=== PATIENT | male | born 1970 | race Caucasian/White ===

== ENCOUNTER 2019-11-07 02:21 | Emergency (ER) | payer BC ==
[2019-11-07 02:29] VITALS: BP 128/72; PULSE 89; RESP 18; TEMP 98.5
--- NOTE | 2019-11-07 02:49 | ED ---
Lower Extremity Injury HPI - General Chief Complaint: Extremity Injury, Lower Stated Complaint: RT ankle injury Time Seen by Provider: 11/07/19 02:41 Source: patient, RN notes reviewed, old records reviewed Mode of arrival: ambulatory Limitations: no limitations - History of Present Illness Initial Comments: This is a 49-year-old male to the ER for evaluation patient comes in for right ankle pain. Patient had a ankle sprain type injury while dancing tonight. Admits to mild intoxication no other injury. Patient is no travel history no sick contacts. No other complaints MD Complaint: ankle injury (Right) -: minutes(s) Injury: Ankle: Right Type of Injury: inversion Place: home Severity: moderate Severity scale (1-10): 5 Context: fall Associated Symptoms: snap/pop sensation, swelling - Related Data Allergies Allergy/AdvReac Type Severity Reaction Status Date / Time Penicillins Allergy Anaphylaxis Verified 11/07/19 02:30 Review of Systems ROS Statement: Those systems with pertinent positive or pertinent negative responses have been documented in the HPI. ROS Other: All systems not noted in ROS Statement are negative. Past Medical History Past Medical History: No Reported History History of Any Multi-Drug Resistant Organisms: None Reported Past Surgical History: Appendectomy Past Psychological History: No Psychological Hx Reported Smoking Status: Current every day smoker Past Alcohol Use History: Occasional Past Drug Use History: None Reported General Exam General appearance: alert, in no apparent distress Head exam: Present: atraumatic, normocephalic, normal inspection Eye exam: Present: normal appearance, PERRL, EOMI. Absent: scleral icterus, conjunctival injection, periorbital swelling ENT exam: Present: normal exam, mucous membranes moist Neck exam: Present: normal inspection. Absent: tenderness, meningismus, lymphadenopathy Respiratory exam: Present: normal lung sounds bilaterally. Absent: respiratory distress, wheezes, rales, rhonchi, stridor Cardiovascular Exam: Present: regular rate, normal rhythm, normal heart sounds. Absent: systolic murmur, diastolic murmur, rubs, gallop, clicks GI/Abdominal exam: Present: soft, normal bowel sounds. Absent: distended, tende rness, guarding, rebound, rigid Extremities exam: Present: normal inspection, full ROM, normal capillary refill, other (Significant right ankle tenderness and swelling). Absent: tenderness, pedal edema, joint swelling, calf tenderness Back exam: Present: normal inspection Neurological exam: Present: alert, oriented X3, CN II-XII intact Psychiatric exam: Present: normal affect, normal mood Skin exam: Present: warm, dry, intact, normal color. Absent: rash Course Vital Signs 11/07/19 02:25 Temperature 98.5 F Pulse Rate 89 Respiratory 18 Rate Blood Pressure 128/72 O2 Sat by Pulse 100 Oximetry - Reevaluation(s) Reevaluation #1: 11/07/19 03:20 Medical record is reviewed Reevaluation #2: 11/07/19 03:20 Patient informed of results and questions answered Procedures - Orthopedic Splinting/Casting Injury #1 Side: right Lower Extremity Immobilizer: posterior splint Medical Decision Making - Medical Decision Making 49 male DF for evaluation with right ankle pain. Patient is presenting with right ankle swelling, patient does have right fibular fracture fracture splinted and patient can be discharged home - Radiology Data Radiology results: report reviewed (X-ray right ankle shows fibular fracture), image reviewed Disposition Clinical Impression: Closed right ankle fracture, Right fibular fracture Disposition: HOME SELF-CARE Condition: Good Instructions (If sedation given, give patient instructions): Ankle Fracture (ED) Is patient prescribed a controlled substance at d/c from ED?: No Referrals: Hal Tinoco MD [Primary Care Provider] - 1-2 days
--- NOTE | 2019-11-07 03:02 | XR ---
EXAMINATION TYPE: XR ankle complete LT DATE OF EXAM: 11/07/2019 COMPARISON: NONE HISTORY: Ankle pain TECHNIQUE: 3 views FINDINGS: There is nondisplaced oblique fracture distal fibula. There is soft tissue swelling around the ankle. Ankle mortise is widened. Talus is intact. IMPRESSION: Acute nondisplaced fracture of the distal fibula.
[2019-11-07] MEDS ORDERED: traMADol 50 MG STARTER PACK 3 TAB BTL PO STA (03:19)
[2019-11-07] MEDS ORDERED: traMADol 50 MG TAB PO STA (03:19)
== END 2019-11-07 03:48 | disposition home or self-care (01) ==
LOC: EC 02:21
DX: S82.434A Nondisplaced oblique fracture of shaft of right fibula, initial encounter for closed fracture (principal); F17.200 Nicotine dependence, unspecified, uncomplicated; Z88.0 Allergy status to penicillin; W18.30XA Fall on same level, unspecified, initial encounter; Y93.41 Activity, dancing
CPT/HCPCS: 29515; 99284

== ENCOUNTER 2019-11-26 08:08 | Day surgery (SDC) | payer BC ==
[2019-11-23 15:40] VITALS: BMI 31.9
--- NOTE | 2019-11-26 07:31 | P.GSHP ---
History of Present Illness H&P Date: 11/26/19 CHIEF COMPLAINT: Colon screen HISTORY OF PRESENT ILLNESS: The patient is a 49-year-old male who presents for colon screen. Lower endoscopy was offered for further evaluation and management. PAST MEDICAL HISTORY: Please see list. PAST SURGICAL HISTORY: Please see list. MEDICATIONS: Please see list. ALLERGIES: Please see list. SOCIAL HISTORY: No illicit drug use FAMILY HISTORY: No reports of Crohn disease or ulcerative colitis. REVIEW OF ORGAN SYSTEMS: CONSTITUTIONAL: No reports of fevers or chills. PHYSICAL EXAM: VITAL SIGNS: Stable GENERAL: Well-developed pleasant in no acute distress. HEENT: No scleral icterus. Extraocular movements grossly intact. Moist buccal mucosa. NECK: Supple without lymphadenopathy. CHEST: Unlabored respirations. Equal bilateral excursions. CARDIOVASCULAR: Regular rate and rhythm. Distal 2+ pulses. ABDOMEN: Soft, nontender, nondistended. MUSCULOSKELETAL: No clubbing, cyanosis, or edema. ASSESSMENT: 1. Colon screen. PLAN: 1. Recommend proceeding with a lower endoscopy Past Medical History Past Medical History: Asthma Additional Past Medical History / Comment(s): rt ankle injury wearing boot. PSA blood work elevated to f/u with dr Dumas. Family hx BRCA gene. asthma as child. hypoglycemic History of Any Multi-Drug Resistant Organisms: None Reported Past Surgical History: Appendectomy Past Anesthesia/Blood Transfusion Reactions: No Reported Reaction Smoking Status: Current every day smoker - Past Family History Sister(s) Family Medical History: Cancer Additional Family Medical History / Comment(s): BRCA positive. ovarian cancer. breast removed Father Additional Family Medical History / Comment(s): BRCA positive gene Medications and Allergies Home Medications Medication Instructions Recorded Confirmed Type [place] (Unk Dose) 1 tab PO Q4H PRN 11/23/19 11/23/19 History Allergies Allergy/AdvReac Type Severity Reaction Status Date / Time Penicillins Allergy Anaphylaxis Verified 11/23/19 15:32
[~2019-11-26 08:08] MED LIST: LACTATED RINGERS 1,000 ML IV SCH; LIDOCAINE 1% (10MG/ML) FOR IV START INTRADERMA PRN
[2019-11-26 08:38] VITALS: TEMP 97.5
[2019-11-26] MEDS ORDERED: PROPOFOL 10 MG/ML 20 ML VIAL IV ONE (09:25)
[2019-11-26 09:54] VITALS: RESP 16
--- NOTE | 2019-11-26 09:59 | P.PCN ---
Date of Procedure: 11/26/19 Description of Procedure: PREOPERATIVE DIAGNOSIS: Colonoscopy screening, first POSTOPERATIVE DIAGNOSIS: Sigmoid colon polyp Internal hemorrhoids External hemorrhoids OPERATION: Colonoscopy to the ileocecal valve and appendiceal orifice, cecum Colonoscopy with cold forceps biopsies SURGEON: Eliza Lea MD. ANESTHESIA: MAC. INDICATIONS: The patient is an 49-year-old male who presents for his first classic screening. Benefits and risks were described and informed consent was obtained. DESCRIPTION OF PROCEDURE: The patient had undergone Suprep. He had been brought into the operating room and laid in the left lateral decubitus position. After adequate intravenous sedation, the rectum was examined with 2% lidocaine jelly. The prostate was unremarkable. External hemorrhoids were encountered. The rectal tone was within normal limits. No lesions were palpated in the rectal vault. An Olympus colonoscope was advanced until the cecum, ileocecal valve and appendiceal orifice were clearly viewed. The prep was good. No sigmoid diverticulosis was encountered. Multiple colonic polyps were found and snare polypectomy. No evidence of focal colitis was found. Retroflexion of the scope demonstrated grade 3 internal hemorrhoids without active bleeding or inflammation. The colon was desufflated. The patient had tolerated the procedure well. Withdrawal time was over 6 minutes. FINDINGS: [place]ick preparation quality scale 2 (1-5) Internal hemorrhoids, grade 3 External hemorrhoids, grade 3 No arteriovenous malformations. No sigmoid diverticulosis Removal of 1 polypn: - Cold forceps biopsy at 20 cm from the anal verge, 4 mm polyp, sigmoid colon No focal colitis. RECOMMENDATIONS: Repeat colonoscopy 2024 Plan - Discharge Summary Discharge Rx Participant: No New Discharge Prescriptions: Continue [place] (Unk Dose) 1 tab PO Q4H PRN PRN Reason: Pain Discharge Medication List [place] (Unk Dose) 1 tab PO Q4H PRN 11/23/19 [History] Patient Instructions/Handouts: *Surgery [facility] - (Anesthesia) Endoscopy Discharge Instructions, Hemorrhoids (DC), Colorectal Polyps (DC), Colonoscopy (DC) Activity/Diet/Wound Care/Special Instructions: Repeat colonoscopy years2024 Discharge Disposition: HOME SELF-CARE
[2019-11-26 10:11] VITALS: BP 134/78; PULSE 70
--- NOTE | 2019-11-29 10:05 | CDI ---
Outpatient Documentation Clarification Form Date: 11/29/19 CDS/Hydraulic Governor Assembler Name: Diana Smith Phone: If any questions, call Monique Leigh Machine Steak Tenderizer at [phone] Patient Name: Delfino Bourne Admit Date: 11/26/19 Discharge Date: 11/26/19 ATTENTION: The [facility] Coding Staff appreciate your assistance in clarifying documentation. Please respond to the clarification below the line at the bottom and electronically sign. The [facility] Coding staff will review the response and follow-up if needed. Please note: Queries are made part of the Legal Health Record. If you have any questions, please contact the Machine Steak Tenderizer. Dear Dr. Lea, Please provide clarification for the method of the biopsies performed. On the procedure note under Operation and also under Findings cold forceps biopsy is documented. in the body of the procedure note, snare polypectomy is documented. Please clarify. Thank you for your kind consideration. Please see amended report. Removed with cold forceps. KM 11/30/19 @ 0608 MTDLennox
== END 2019-11-26 10:40 | disposition home or self-care (01) ==
LOC: ORWHC2ENDO 08:08
PROVIDERS: ATTEND Surgery Plastic and Reconstructive Surgery
DX: Z12.11 Encounter for screening for malignant neoplasm of colon (principal); K63.5 Polyp of colon; K64.2 Third degree hemorrhoids; J45.909 Unspecified asthma, uncomplicated; R97.20 Elevated prostate specific antigen [PSA]; E16.2 Hypoglycemia, unspecified; Z98.890 Other specified postprocedural states; Z15.01 Genetic susceptibility to malignant neoplasm of breast; Z85.89 Personal history of malignant neoplasm of other organs and systems; Z84.81 Family history of carrier of genetic disease; Z80.3 Family history of malignant neoplasm of breast; Z80.41 Family history of malignant neoplasm of ovary; Z88.0 Allergy status to penicillin; F17.210 Nicotine dependence, cigarettes, uncomplicated
CPT/HCPCS: 88305; 45380; J2704

== ENCOUNTER → 2020-05-16 | Outpatient (CLI) | payer BC ==
--- NOTE | 2020-05-16 08:38 | CT ---
EXAMINATION TYPE: CT ankle RT wo con DATE OF EXAM: 05/16/2020 COMPARISON: Plain film x-rays 11/07/2019 HISTORY: Fx in October 2019, not healing correctly CT DLP: 183.[address] of the right ankle with reconstruction imaging. TECHNIQUE: Unenhanced CT of the right ankle was performed with bone and soft tissue window settings s ubmitted in the axial coronal and sagittal planes. At a separate workstation 3-D TR imaging was obta ined. FINDINGS: Previously noted oblique distal fibular fracture is redemonstrated with only minimal medial callus fo rmation seen. Displacement of 3 mm noted. There is a well-corticated ossific density adjacent to the medial malleolar tip which is suspicious for an avulsion fracture of uncertain age. There is also per iosteal reaction involving the posterior malleolar region which may reflect healed fracture small avu lsion. There is bony osteopenia noted from disuse. Ankle mortise is intact. No acute fractures. IMPRESSION: 1. 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
== END | disposition home or self-care (01) ==
LOC: RADCTMAIN 06:55
PROVIDERS: ATTEND Podiatrist
DX: S82.61XK Displaced fracture of lateral malleolus of right fibula, subsequent encounter for closed fracture with nonunion (principal); M25.771 Osteophyte, right ankle

== ENCOUNTER 2020-07-15 05:41 | Day surgery (SDC) | payer BC ==
[2020-07-13 12:02] VITALS: BMI 33.4
[~2020-07-15 05:41] MED LIST changes: -LACTATED RINGERS 1,000 ML IV SCH; -LIDOCAINE 1% (10MG/ML) FOR IV START INTRADERMA PRN; +VANCOMYCIN 1,500 MG in SODIUM CHLORIDE 0.9% 250 ML IVPB PRN
[2020-07-15] MEDS ORDERED: ONDANSETRON 4 MG/2 ML VIAL IVP ONE (05:48)
[2020-07-15] MEDS ORDERED: LIDOCAINE 1% (10MG/ML) FOR IV START INTRADERMA PRN (05:48)
[2020-07-15] MEDS ORDERED: DEXAMETHASONE SOD PHOSPHATE 4 MG/ML 1 ML VIAL IV ONE (05:48)
[2020-07-15] MEDS ORDERED: MIDAZOLAM 2 MG/2 ML VIAL IV PRN (05:48)
[2020-07-15] MEDS: LACTATED RINGERS 1,000 ML IV SCH ×2 (06:15→06:40)
[2020-07-15] MEDS ORDERED: HYDROmorphone 0.5 MG/0.5 ML SYRINGE IVP PRN (07:00)
[2020-07-15] MEDS ORDERED: LIDOCAINE 1% INJ 10MG/ML (20 ML MDV) ONE ×3 (07:03→07:41)
[2020-07-15] MEDS ORDERED: ROPIVACAINE 5 MG/ML 30 ML VIAL ONE (07:41)
[2020-07-15] MEDS ORDERED: MIDAZOLAM 2 MG/2 ML VIAL ONE (07:41)
[2020-07-15] MEDS ORDERED: fentaNYL (PF) 50 MCG/ML 2 ML AMP ONE (07:41)
[2020-07-15] MEDS ORDERED: PROPOFOL 10 MG/ML 20 ML VIAL IV ONE (07:41)
[2020-07-15 09:13] VITALS: TEMP 97
--- NOTE | 2020-07-15 09:22 | P.OP ---
Date of Procedure: 07/15/20 Preoperative Diagnosis: Nonunion right lateral malleolar fracture Postoperative Diagnosis: Same Procedure(s) Performed: Repair of nonunion with internal fixation right lateral malleolus Implants: 1 Cameron 4-hole lateral malleolar plate with associated locking and nonlocking screws, right medical AlloMatrix and Augment Anesthesia: BENITO Surgeon: Abdon Fleming Estimated Blood Loss (ml): 5 Pathology: none sent Condition: stable Disposition: PACU Indications for Procedure: Nonhealing right lateral malleolar fracture Description of Procedure: Prior to the patient being brought to the operating room anesthesia administered a nerve block on the right lower extremity under ultrasonic guidance and mild sedation. Then the patient was brought into the operating room and placed on table supine position. Timeout was taken to confirm correct patient identifiers, correct site of surgery, and correct procedure. When everybody in the room was in agreement, the patient was placed under general anesthesia. A well-padded tourniquet was placed on the right calf. A bump was placed underneath the right hip to internally rotate the right leg. The right leg was then prepped and draped usual manner. The right leg was exsanguinated and the tourniquet inflated to 250 motors mercury. The joint was directed over the lateral malleolus where a linear incision was made down the midline. The incision was deepened down to the subcutaneous tissue being careful to identify, avoid, and retract any neurovascular structures and cauterize any bleeding vessels. The periosteum was incised along the skin incision line and then subperiosteal dissection was performed to expose the fracture line. An elevator was used to identify the fracture line and then an osteotome inserted to separate the fracture fragments. Instrumentation was u sed to remove the interposing soft tissue that was preventing healing from the bone ends to expose healthy bleeding bone. Once that was completed the right medical AlloMatrix and Augment were mixed on the back table. The material was inserted between the fracture fragments and then a bone clamp was applied to compress the fracture. Fluoroscopic imaging confirmed proper alignment of the fracture. With the clamp still in place a 3.5 mm cortical screw was inserted from anterior to posterior, perpendicular to the fracture line, and tightened until a compressed the fracture. The clamp was removed and then fluoroscopy was used to check the position of the screw which was acceptable both on AP and lateral views. Then a Cameron 4-hole lateral malleolar plate was positioned laterally and then adjusted under fluoroscopy and once the position was finalized temporary fixation was placed in the plate to lock them in place. Fluoroscopic imaging confirmed proper placement of the plate. 3.5 locking screws were placed in the holes proximal to the fracture. A 3.5 cortical screw was inserted the most distal hole to help bring the plate against the bone. 35 locking screws were also placed distally however drilling was done under fluoroscopic visualization so the drill did not enter the lateral gutter. Temporary fixation was removed and final fluoroscopic imaging showed proper placement of hardware with good reduction of the fracture. Wound is irrigated thoroughly with normal saline. Deep closure was done with 0 Vicryl, subcutaneous closure done with 4-0 Monocryl, and skin closure done with stainless ligia. An Arthrex jumpstart dressing was applied over the incision then an bulky dry dressing applied to the right ankle. The tourniquet was released and capillary refill return to all digits on the right foot. Then the patient was placed in a well-padded, well molded, plaster posterior mold sugar tong splint. Ankle was held at 90 until the splint dried. Anesthesia was then reversed and the patient was taken recovery with vital signs stable.
[2020-07-15 09:56] VITALS: BP 109/78; PULSE 78; RESP 18
--- NOTE | 2020-07-15 10:39 | FL ---
Fluoroscopy and limited right ankle HISTORY: Open reduction internal fixation for ankle fracture 9 seconds fluoroscopy time supplied to the referring clinician. 1 intraoperative C-arm images docume nt the procedure. See dictated report from surgery.
--- NOTE | 2020-07-15 14:09 | P.ANPRN ---
Procedure Note - Anesthesia - Nerve Block Performed Right Adductor Canal Single Time Out Performed: Yes ()[id number]) Date of Procedure: 07/15/20 Procedure Start Time: 07:12 Procedure Stop Time: 07:17 Location of Patient: PreOp Indication: Acute Post-Operative Pain, Dx/Pain Location (Right Ankle) Specifically requested for management of pain by Dr.: Abdon Fleming Sedation Type: Sedate with meaningful contact maintained Preparation: Sterile Prep Position: Supine Catheter: None Needle Types: Pajunk Needle Gauge: 21 (4 inch) Ultrasound used to visualize needle placement: Yes Ultrasound used to observe medication spread: Yes Injectate: 0.5% Ropivacaine (see comment for volume) (15cc + Lidocain 1% 10cc) Blood Aspirated: No Pain Paresthesia on Injection Noted: No Resistance on Injection: Normal Image Stored and Saved: Yes Events: Uneventful and Well Tolerated Right Popliteal Single Time Out Performed: Yes Date of Procedure: 07/15/20 Procedure Start Time: 07:18 Procedure Stop Time: 07:22 Location of Patient: PreOp Indication: Acute Post-Operative Pain, Requested by Surgeon Specifically requested for management of pain by Dr.: Abdon Fleming Sedation Type: Sedate with meaningful contact maintained Preparation: Sterile Prep Position: Left Lateral Catheter: None Needle Types: Pajunk Needle Gauge: 21 (4 inch) Ultrasound used to visualize needle placement: Yes Ultrasound used to observe medication spread: Yes Injectate: 0.5% Ropivacaine (see comment for volume) (15cc + 1% lildocaine 10cc) Blood Aspirated: No Pain Paresthesia on Injection Noted: No Resistance on Injection: Normal Image Stored and Saved: Yes Events: Uneventful and Well Tolerated
== END 2020-07-15 10:37 | disposition home or self-care (01) ==
LOC: OR 05:41
PROVIDERS: ATTEND Podiatrist
DX: S82.61XK Displaced fracture of lateral malleolus of right fibula, subsequent encounter for closed fracture with nonunion (principal); F17.210 Nicotine dependence, cigarettes, uncomplicated; E11.9 Type 2 diabetes mellitus without complications; E03.9 Hypothyroidism, unspecified; J45.909 Unspecified asthma, uncomplicated; Z88.0 Allergy status to penicillin
CPT/HCPCS: 73600; 27792; J2250; J3370; J1100; J2405; 64445; 64447; 76942

== ENCOUNTER → 2021-03-01 | Outpatient (CLI) | payer BC ==
--- NOTE | 2021-03-02 13:02 | MM ---
Reason for exam: clinical finding. History: Patient has breast cancer gene. Family history of breast cancer in sister. Physical Findings: Nurse Summary: 1-2cm nodule in the right breast at 10 o'clock (nurse db). MG 3D Diag Mammo W/Cad KELLIE Bilateral CC and MLO view(s) were taken. There are scattered fibroglandular densities. Benign bilaterally axillary lymph nodes including low lying left intramammary lymph nodes. These results were verbally communicated with the patient and result sheet given to the patient on 03/01/21. ASSESSMENT: Benign, BI-RAD 2 RECOMMENDATION: Clinical management of both breasts. Manage patient on a clinical basis.
== END | disposition home or self-care (01) ==
LOC: RADMAMWWP 10:41
PROVIDERS: ATTEND Internal Medicine Hematology & Oncology
DX: Z14.8 Genetic carrier of other disease (principal); Z80.3 Family history of malignant neoplasm of breast
CPT/HCPCS: 77062; 77066

== ENCOUNTER → 2021-03-03 | Outpatient (CLI) | payer BC ==
--- NOTE | 2021-03-03 15:54 | XR ---
EXAMINATION TYPE: XR chest 2V DATE OF EXAM: 03/03/2021 COMPARISON: 01/19/2017 TECHNIQUE: PA and lateral views submitted. HISTORY: COPD FINDINGS: The lungs are clear and there is no pneumothorax, pleural effusion, or focal pneumonia. Heart size normal. Interstitium stable. Biapical pleural thickening. Arthropathy of the AC joints. IMPRESSION: 1. No acute process.
== END | disposition home or self-care (01) ==
LOC: RADXRMAIN 15:34
PROVIDERS: ATTEND Family Medicine
DX: J44.1 Chronic obstructive pulmonary disease with (acute) exacerbation (principal)
CPT/HCPCS: 71046

== ENCOUNTER 2023-04-29 23:51 | Emergency (ER) | payer MEDICAID ==
[2023-04-30 00:13] VITALS: TEMP 98
--- NOTE | 2023-04-30 00:14 | ED ---
ENT HPI - General Chief complaint: Dental/Oral Stated complaint: Dental pain Time Seen by Provider: 04/29/23 23:55 Source: patient Mode of arrival: ambulatory Limitations: no limitations - History of Present Illness Initial comments: 53-year-old male presenting with chief complaint of dental pain. Patient has a known fractured tooth to the left lower side for the last year. He states that today he was eating a piece of meat and felt a "crack". No swelling surrounding the jaw. No trismus. No fevers. No neck pain or headache. He states that he has not gotten in with a dentist because he has been too busy and he has some fears of going to the dentist. - Related Data Previous Rx's Medication Instructions Recorded HYDROcodone/APAP 7.5-325MG [Wheeler 1 tab PO Q4H PRN 7 Days #30 tab 07/15/20 7.5-325] HYDROcodone/APAP 7.5-325MG [Wheeler 1 tab PO Q6HR PRN 3 Days #12 tab 04/30/23 7.5-325] Allergies Allergy/AdvReac Type Severity Reaction Status Date / Time Penicillins Allergy Anaphylaxis Verified 07/15/20 06:19 Review of Systems ROS Statement: Those systems with pertinent positive or pertinent negative responses have been documented in the HPI. ROS Other: All systems not noted in ROS Statement are negative. Past Medical History Past Medical History: No Reported History Additional Past Medical History / Comment(s): rt ankle injury wearing boot. PSA blood work elevated to f/u with dr Dumas. Family hx BRCA gene. asthma as child. hypoglycemic History of Any Multi-Drug Resistant Organisms: None Reported Past Surgical History: Appendectomy Past Anesthesia/Blood Transfusion Reactions: No Reported Reaction Past Psychological History: No Psychological Hx Reported Smoking Status: Current every day smoker Past Alcohol Use History: Occasional Past Drug Use History: None Reported - Past Family History Sister(s) Family Medical History: Cancer Additional Family Medical History / Comment(s): BRCA positive. ovarian cancer. breast removed Father Additional Family Medical History / Comment(s): BRCA positive gene General Exam Limitations: no limitations General appearance: alert, in no apparent distress Head exam: Present: atraumatic, normocephalic Eye exam: Present: normal appearance Expanded Mouth exam: Present: normal external inspection, tongue normal. Absent: drooling, trismus, muffled voice Teeth exam: Present: fractured tooth #, dental tenderness #. Absent: gingival enlargement Throat exam: normal inspection Neck exam: Present: normal inspection Respiratory exam: Absent: respiratory distress Cardiovascular Exam: Present: regular rate Neurological exam: Present: alert, oriented X3 Psychiatric exam: Present: normal affect, normal mood Skin exam: Present: warm, dry Course Vital Signs 04/29/23 04/30/23 23:59 00:35 Temperature 98 F Pulse Rate 97 89 Respiratory 18 20 Rate Blood Pressure 161/116 140/86 O2 Sat by Pulse 97 96 Oximetry Medical Decision Making - Medical Decision Making Was pt. sent in by a medical professional or institution (, PA, ASSOCIATE PROFESSOR OF MANAGEMENT, urgent care, hospital, or group home...) When possible be specific @ -No Did you speak to anyone other than the patient for history (EMS, parent, family, police, friend...)? What history was obtained from this source @ -No Did you review nursing and triage notes (agree or disagree)? Why? @ -I reviewed and agree with nursing and triage notes Were old charts reviewed (outside hosp., previous admission, EMS record, old EKG, old radiological studies, urgent care reports/EKG's, group home records)? Report findings @ -No old charts were reviewed Differential Diagnosis (chest pain, altered mental status, abdominal pain women, abdominal pain men, vaginal bleeding, weakness, fever, dyspnea, syncope, headache, dizziness, GI bleed, back pain, seizure, CVA, palpatations, mental health, musculoskeletal)? @ -Differential includes toothache, dental abscess, Prasanna's angina, this is not an all-inclusive list EKG interpreted by me (3pts min.). @ -As above X-rays interpreted by me (1pt min.). @ -None done CT interpreted by me (1pt min.). @ -None done U/S interpreted by me (1pt. min.). @ -None done What testing was considered but not performed or refused? (CT, X-rays, U/S, labs)? Why? @ -None What meds were considered but not given or refused? Why? @ -None Did you discuss the management of the patient with other professionals (professionals i.e. , PA, ASSOCIATE PROFESSOR OF MANAGEMENT, lab, RT, psych nurse, social problems specialist, geology scientist, teacher, family preservation officer, director case management)? Give summary @ -No Was smoking cessation discussed for >3mins.? @ -No Was critical care preformed (if so, how long)? @ -No Were there social determinants of health that impacted care today? How? (Homelessness, low income, unemployed, alcoholism, drug addiction, transportation, low edu. Level, literacy, decrease access to med. care, longterm, rehab)? @ -No Was there de-escalation of care discussed even if they declined (Discuss DNR or withdrawal of care, Hospice)? DNR status @ -No What co-morbidities impacted this encounter? (DM, HTN, Smoking, COPD, CAD, Cancer, CVA, ARF, Chemo, Hep., AIDS, mental health diagnosis, sleep apnea, morbid obesity)? @ -None Was patient admitted / discharged? Hospital course, mention meds given and route, prescriptions, significant lab abnormalities, going to OR and other pertinent info. @ -53-year-old male presenting with chief complaint of dental pain. He has a known fractured tooth and today felt a cracking sensation while eating a piece of meat. On exam there is obvious fractured tooth with dental caries and tenderness. No gingival enlargement or swelling to suggest dental abscess. Patient is provided with pain medication and instructed to follow-up with dentist. Discharged home. Follow-up with PCP. Report back to ER with any new or worsening symptoms. Discussed return parameters and answered all questions. Patient conveyed verbal understanding and agreed to the plan. I discussed this case in detail with my attending Dr. Stephens Undiagnosed new problem with uncertain prognosis? @ -No Drug Therapy requiring intensive monitoring for toxicity (Heparin, Nitro, Insulin, Cardizem)? @ -No Were any procedures done? @ -No Diagnosis/symptom? @ -Dental pain Acute, or Chronic, or Acute on Chronic? @ -Acute Uncomplicated (without systemic symptoms) or Complicated (systemic symptoms)? @ -Uncomplicated Side effects of treatment? @ -No Exacerbation, Progression, or Severe Exacerbation? @ -No Poses a threat to life or bodily function? How? (Chest pain, [place], [place], pneumonia, PE, COPD, DKA, ARF, appy, cholecystitis, CVA, Diverticulitis, Homicidal, Traci cidal, threat to staff... and all critical care pts) @ -No Disposition Clinical Impression: Fracture of tooth, Toothache Disposition: HOME SELF-CARE Condition: Good Instructions (If sedation given, give patient instructions): Toothache (ED) Additional Instructions: Take Motrin as needed for pain. Take medication as prescribed. Report back to ER with any new or worsening symptoms. Please follow up with the [facility]. [address] [place] [address]. Phone number for new patients or [phone] for existing patients. Prescriptions: HYDROcodone/APAP 7.5-325MG [Wheeler 7.5-325] 1 tab PO Q6HR PRN 3 Days #12 tab PRN Reason: Pain Is patient prescribed a controlled substance at d/c from ED?: Yes When asked, does pt state using other controlled substances?: No If prescribed controlled substance>3 days was MAPS reviewed?: Prescribed <3 Days If opioid is for acute pain is fill amount 7 days or less?: Yes Referrals: Hal Tinoco MD [Primary Care Provider] - 1-2 days Time of Disposition: 00:14
[2023-04-30] MEDS: HYDROcodone/APAP 7.5-325MG 1 EACH TAB PO ONE (00:28)
[2023-04-30] MEDS: KETOROLAC 15 MG/ML 1 ML VIAL IM STA (00:29)
[2023-04-30 00:56] VITALS: BP 140/86; PULSE 89; RESP 20
== END 2023-04-30 00:48 | disposition home or self-care (01) ==
LOC: EC 23:51
DX: K03.81 Cracked tooth (principal); F17.200 Nicotine dependence, unspecified, uncomplicated
CPT/HCPCS: 96372; 99282; J1885

== ENCOUNTER → 2023-08-28 | Outpatient (CLI) | payer MEDICAID ==
--- NOTE | 2023-08-28 16:07 | XR ---
EXAMINATION TYPE: XR elbow complete RT DATE OF EXAM: 08/28/2023 3:58 PM CLINICAL INDICATION:Male, 53 years old with history of M77.11 Lateral epicondylitis r elbow; [facility] COMPARISON: None TECHNIQUE: XR elbow complete RT; elbow was examined in AP, lateral, and oblique projections. FINDINGS: No evidence of any acute osseous pathology, joint dislocation, or soft tissue swelling is n oted. No evidence of joint effusion is present. IMPRESSION: No evidence of acute fracture.
== END | disposition home or self-care (01) ==
LOC: RADXRMAIN 15:42
PROVIDERS: ATTEND Nurse Practitioner Family
DX: M77.11 Lateral epicondylitis, right elbow (principal)